=== PATIENT | male | born 1985 | race Hispanic/Latino ===

== ENCOUNTER 2017-05-05 13:41 | Emergency (ER) | payer SELFPAY | END 2017-05-05 15:56 | disposition home or self-care (01) | LOC: EDH 13:41 | DX: G89.29 Other chronic pain (principal); M25.512 Pain in left shoulder; Z87.891 Personal history of nicotine dependence; Z79.899 Other long term (current) drug therapy | CPT/HCPCS: 99281 ==

== ENCOUNTER 2018-01-12 16:53 | Emergency (ER) | payer OTHER ==
[2018-01-12] MEDS ORDERED: IBUPROFEN 400 MG TABLET ONE (17:51)
== END 2018-01-12 18:27 | disposition home or self-care (01) ==
LOC: EDH 16:53
DX: J09.X2 Influenza due to identified novel influenza A virus with other respiratory manifestations (principal); R50.81 Fever presenting with conditions classified elsewhere
CPT/HCPCS: 87804